=== PATIENT | female | born 1965 | race Caucasian/White ===

== ENCOUNTER → 2018-04-14 10:32 | Outpatient (CLI) | payer MEDICAID, SELFPAY ==
--- NOTE | 2018-04-14 10:38 | US_ITS ---
US transvaginal HISTORY: ITS.REASON: ABNORMAL UTERINE BLEEDING ORDERING PHYSICIAN: Leela Gillette PATIENT AGE: 52 years Comparison: None FINDINGS: The uterus is 8.4 x 3.2 x 4.4 cm with a combined endometrial thickness of 4 mm. Nabothian cyst is present. No uterine mass apparent. The right ovary is enlarged at 12 x 9 x 10 cm containing a septated cyst at 11 x 8 x 8 cm. The internal septations slightly thickened. No cul-de-sac fluid evident. The left ovary has been removed IMPRESSION: 11 x 8 cm complex right ovarian cyst containing a mildly thickened septation. Consider MRI for further evaluation.
== END ==
PROVIDERS: Family Provider Family Medicine; PCP Family Medicine; Visit Provider Nurse Practitioner Family
DX: N93.9 Abnormal uterine and vaginal bleeding, unspecified (principal)
CPT/HCPCS: 76830

== ENCOUNTER → 2018-05-05 10:41 | Outpatient (CLI) | payer MEDICAID, SELFPAY ==
--- NOTE | 2018-05-05 10:45 | MR_ITS ---
MR pelvis wo/w con HISTORY: ITS.REASON: COMPLEX CYST OF RIGHT OVARY ORDERING PHYSICIAN: Leela Gillette PATIENT AGE: 52 years Comparison: 04/14/2018 TECHNIQUE: Standard multiplanar multiecho sequences are performed without and with gadolinium enhancement. FINDINGS: There is a large cystic lesion of the pelvis measuring 12 cm cephalad to caudad, 11 cm transverse, and 9 cm AP this corresponds to the ultrasound abnormality described on 04/14/2018. This is situated slightly to the right of midline within the pelvis. There are a few thin septations involving this lesion. No obvious papillary projections. There is some mild thickening of the wall with enhancement along the left aspect of the lesion anteriorly and centrally as seen on the axial T1 fat suppressed post enhanced images. No obvious debris within the cyst. This does not appear to represent a hemorrhagic lesion nor does it appear to represent a lesion containing fat such as a dermoid or teratoma. No obvious ascites or pelvic adenopathy. The uterus is somewhat canted toward the right. There are small nabothian cysts noted. There is some fluid signal intensity within the lower uterine segment and cervical region. IMPRESSION: 1. 12 x 11 x 9 cm cystic pelvic mass as described above is likely ovarian in nature with a few thin internal septations. There is some mild wall thickening inferiorly. This may represent an ovarian cystadenoma/cystadenofibroma. Cystadenocarcinoma felt to be less likely but not completely excluded. Large complex follicular cyst also included in the differential diagnosis. No ascites or adenopathy. 2. Suggest gynecological consult.
== END ==
PROVIDERS: PCP Nurse Practitioner Family; Visit Provider Nurse Practitioner Family
DX: N83.291 Other ovarian cyst, right side (principal)
CPT/HCPCS: 72197; A9576

== ENCOUNTER → 2018-06-09 11:22 | Outpatient (CLI) | payer MEDICAID, SELFPAY ==
[2018-06-09 11:27] LABS: Microscopic, Urine URINE MICROSCOPIC (MICROSCOPIC)
[2018-06-09 11:45] LABS: Appearance,Urine CLEAR (Clear); Bilirubin,Urine Negative (Negative); Blood, Urine 2+ (Negative); Color,Urine YELLOW (Yellow); Glucose,Urine (UA) Negative (Negative); Ketones,Urine Negative (Negative); Leukocyte Esterase,Urine TRACE (Negative); Nitrate,Urine Negative (Negative); Protein,Urine Negative (Negative); Urobilinogen,Urine 0.2 EU/dl (0.2)
[2018-06-09 11:54] LABS: Bacteria,Urine 1+ /lpf; Mucus,Urine 3+ /lpf
[2018-06-09 12:25] LABS: Basophils # 0.1 K/mm3 (0-0.2); Basophils % 0.8 % (0.1-2.0); Eosinophils # 0.2 K/mm3 (0.0-0.4); Eosinophils % 2.5 % (0.1-12.0); Hematocrit 44.7 % (37.0-47.0); Hemoglobin 14.3 g/dL (12.2-16.2); Lymphocytes # 2.4 K/mm3 (0.7-4.5); Lymphocytes % 33.4 % (10-50); Mean Corpuscular Hemoglobin 29.8 pg (27.0-31.2); Mean Corpuscular Volume 93.2 fl (81-99); Mean Platelet Volume 7.6 fl (7.4-10.4); Monocytes # 0.3 K/mm3 (0.1-1.0); Monocytes % 4.5 % (1.7-9.3); Neutrophils # 4.3 K/mm3 (1.8-7.8); Neutrophils % 58.8 % (37.0-80.0); Platelet Count 387 K/mm3 (142-424); Red Cell Distribution Width 14.4 % (11.5-17.5); White Blood Count 7.2 K/mm3 (4.8-10.8)
[2018-06-09 13:52] LABS: Alanine Aminotransferase 17 U/L (12-78); Albumin Level 3.4 gm/dL (3.4-5.0); Albumin/Globulin Ratio 0.9 (1.1-1.8); Alkaline Phosphatase 75 U/L (46-116); Anion Gap 15.2 mEq/L (5-15); Aspartate Amino Transferase 16 U/L (15-37); Bilirubin,Total 0.3 mg/dL (0.2-1.0); Blood Urea Nitrogen 16 mg/dL (7-18); Calcium 8.5 mg/dL (8.5-10.1); Carbon Dioxide 27 mmol/L (21.0-32.0); Chloride 104 mmol/L (98-107); Creatinine,Serum 0.71 mg/dL (0.55-1.02); Estimated Glomerular Filt Rate 86 ml/min (>60); GFR (African American) 104 ML/MIN (>60); Globulin 3.8 gm/dl (1.3-3.2); Glucose 86 mg/dL (74-106); Potassium 4.2 mmoL/L (3.5-5.1); Sodium 142 mmol/L (136-145); Total Protein,Serum 7.2 gm/dL (6.4-8.2)
[2018-06-10 11:46] LABS: Cancer Antigen (CA) 125 14.5 U/mL (0.0-38.1)
== END ==
PROVIDERS: PCP Family Medicine; Visit Provider Obstetrics & Gynecology
DX: Z01.818 Encounter for other preprocedural examination (principal); R19.00 Intra-abdominal and pelvic swelling, mass and lump, unspecified site
CPT/HCPCS: 36415; 80053; 81001; 85025; 86316; 87086; 87088; 87186

== ENCOUNTER → 2018-06-23 10:09 | Outpatient (CLI) | payer MEDICAID, SELFPAY ==
[2018-06-23 10:25] LABS: Microscopic, Urine URINE MICROSCOPIC (MICROSCOPIC)
--- NOTE | 2018-06-23 10:30 | XR_ITS ---
XR chest 2V HISTORY: ITS.REASON: CONGESTION, CURRENT SMOKER, PRE-OP ORDERING PHYSICIAN: Roman Petty MD PATIENT AGE: 53 years COMPARISON: None FINDINGS: The cardiomediastinal silhouette and pulmonary vascularity are within normal limits. The lungs are clear without infiltrates, suspicious nodules, or pleural effusions. No acute bony abnormalities. IMPRESSION: Negative chest, no acute finding
[2018-06-23 10:47] LABS: Basophils # 0.1 K/mm3 (0-0.2); Basophils % 0.5 % (0.1-2.0); Eosinophils # 0.3 K/mm3 (0.0-0.4); Eosinophils % 2.2 % (0.1-12.0); Hematocrit 43.8 % (37.0-47.0); Hemoglobin 14.2 g/dL (12.2-16.2); Lymphocytes # 2.6 K/mm3 (0.7-4.5); Mean Corpuscular HGB Conc 32.4 g/dL (31.8-35.4); Mean Corpuscular Volume 92.5 fl (81-99); Mean Platelet Volume 7.7 fl (7.4-10.4); Monocytes # 0.7 K/mm3 (0.1-1.0); Monocytes % 4.9 % (1.7-9.3); Neutrophils # 10.9 K/mm3 (1.8-7.8); Neutrophils % 74.4 % (37.0-80.0); Platelet Count 442 K/mm3 (142-424); Red Blood Count 4.74 M/mm3 (4.20-5.40); Red Cell Distribution Width 14.1 % (11.5-17.5); White Blood Count 14.6 K/mm3 (4.8-10.8)
[2018-06-23 10:48] LABS: Appearance,Urine CLOUDY (Clear); Bilirubin,Urine Negative (Negative); Blood, Urine Negative (Negative); Color,Urine YELLOW (Yellow); Glucose,Urine (UA) Negative (Negative); Ketones,Urine TRACE (Negative); Leukocyte Esterase,Urine 2+ (Negative); Nitrate,Urine POSITIVE (Negative); Protein,Urine Negative (Negative); Specific Gravity, Urine >= 1.030 (1.005-1.030); Urobilinogen,Urine 0.2 EU/dl (0.2)
[2018-06-23 10:55] LABS: Bacteria,Urine 4+ /lpf; Squamous Epithelial Cell,Urine 20-50 #/hpf (0-5)
[2018-06-23 11:27] LABS: HCG Qualitative, Serum Negative (Negative)
[2018-06-23 11:32] LABS: Alanine Aminotransferase 17 U/L (12-78); Albumin Level 3.2 gm/dL (3.4-5.0); Albumin/Globulin Ratio 0.8 (1.1-1.8); Alkaline Phosphatase 85 U/L (46-116); Anion Gap 13.2 mEq/L (5-15); Aspartate Amino Transferase 9 U/L (15-37); Bilirubin,Total 0.6 mg/dL (0.2-1.0); Blood Urea Nitrogen 16 mg/dL (7-18); Calcium 8.6 mg/dL (8.5-10.1); Carbon Dioxide 27 mmol/L (21.0-32.0); Chloride 103 mmol/L (98-107); Creatinine,Serum 0.69 mg/dL (0.55-1.02); Estimated Glomerular Filt Rate 89 ml/min (>60); GFR (African American) 108 ML/MIN (>60); Globulin 3.9 gm/dl (1.3-3.2); Glucose 98 mg/dL (74-106); Potassium 4.2 mmoL/L (3.5-5.1); Sodium 139 mmol/L (136-145); Total Protein,Serum 7.1 gm/dL (6.4-8.2)
== END ==
PROVIDERS: Visit Provider Obstetrics & Gynecology
DX: Z01.818 Encounter for other preprocedural examination (principal); N94.9 Unspecified condition associated with female genital organs and menstrual cycle; N76.0 Acute vaginitis; B96.89 Other specified bacterial agents as the cause of diseases classified elsewhere
CPT/HCPCS: 36415; 71046; 80053; 81001; 84703; 85025; 87086; 87088; 87186; 93005

== ENCOUNTER 2018-06-26 06:08 | Inpatient (IN) ==
--- NOTE | 2018-06-26 07:03 | Progress Note ---
[facility] Anesthesia Checklist - Patient Identification Patient Identification: Arm Band, Verbal (Name & ) - Structural Data Admitted From: Home Planned Operative Procedure/s: ex lap Consent for Planned Operative Procedure(s) Verified: Yes Verified Documents: Surgical Consent, History and Physical - NPO Status Verified Time NPO: 00:00 - Chart Verification Results Verified: CBC, BMP - Additional verifications Patient : No Anesthesia Reactions: No Hx Blood Transfusions: No Blood Transfusion Reaction: No Cephalosporin Allergy: No Previous Colonoscopy: No - Cardiovascular Assessment Heart Sounds: S1 & S2 Pulse Strength: Baseline Pulse Rhythm: Regular Peripheral Edema: No - Airway Assessment C-Spine Mobility Assessed: Yes TMJ Mobility Assessed: Yes Dentition: Good Dentition - Neurological Assessment Level of Consciousness: Awake, Alert, Appropriate Hx Seizures: No Numbness or tingling in extremities: No - Anesthesia Plan Anesthesia Risk discussed: Yes Anesthesia Plan: Verified ASA Class: II Anesthesia Type: General [facility] History I have reviewed the patient's past medical history: Yes Medical History: Denies:: Cancer, Diabetes Mellitus Type 1, Diabetes Mellitus Type 2, Internal Pacemaker, MRSA, Seizures Other Medical History: Reports: Other. Denies: Blood Transfusion Reaction Other Surgeries: Yes: Other. No: Pacemaker Amputation: No Fractures: No - *Social History Educational Level: Attended High School Smoking Status: Current every day smoker # Packs/Day (cigarettes): 1 Alcohol Intake: never Substance Use Type: denies use Occupational Status: unemployed Housing: house Household Members: spouse - Psychiatric History Expresses thoughts of harming self/others: None Suicide Plan Description: No Plan *Family Hx:: Cancer
--- NOTE | 2018-06-26 09:59 | Operative Note ---
Date of procedure: 06/26/18 Pre-op Diagnosis:: #1 pelvic pain #2 right adnexal mass Post-op Diagnosis:: #1 pelvic pain. 2. left adnexal mass (benign serous cystadenoma by frozen section. Procedure performed:: 1. Exploratory laparotomy. 2. Peritoneal washings. 3. Left salpingo-oophorectomy with frozen section. 4. Total abdominal hysterectomy. Surgeon:: Roman Petty MD Bingo Attendant(s):: JEFFRY Cherry UTILITY MECHANIC SUPERVISOR:: Ernesto Valencia Anesthesia: GETA Estimated blood loss (mL): 300 Operative findings:: Large left adnexal mass (benign serous cystadenoma by frozen section) Operative note:: After the patient was prepped and draped in usual fashion and general anesthesia was admitted, a low abdominal midline incision was made through the previous incision, and the fat and fascia was in usual fashion, bleeders being clamped and coagulated along the way. The peritoneum was entered with a knife, and extended above and below with Metzenbaum scissors. Immediately, a large cyst (15 cm) cystic mass presented. There were no papillary excrescences on its surface. There was no ascites, but peritoneal washings were carried out and submitted for cytology. After the bowel was packed away and a self-retaining Ross retractor was placed, the mass was able to be identified as a large left adnexal cystic mass. A nubbin of the distal left tube was attached. The uterus was of normal size and configuration. The right adnexa was surgically absent. There was no other obvious pathology. The mass was carefully teased out of the abdomen, and the ovarian pedicle was crossclamped and cut, thus removing the left adnexa and submitting it for frozen section. This pedicle was Maegan suture with #1 Vicryl. The round ligaments on either side were Maegan clamped, cut, and Maegan sutured with #1 Vicryl. The bladder peritoneum was sharply and bluntly dissected free (it was well advanced on the anterior uterine surface). The uterine vessels, the cardinal and uterosacral ligaments on either side were Maegan clamped, cut, and Maegan sutured with #1 Vicryl. The cervix was long and was difficult to reach the base. Therefore, a supracervical hysterectomy was initially carried out, the body of the uterus being removed with a scalpel. Reedy clamps were used to tent up the remaining cervix, and then the cervical vessels were crossclamped and cut, and Maegan suture with #1 Vicryl. The vagina was then entered anteriorly with a knife, and the cervical specimen was removed with Masoud scissors. The vaginal cuff was closed with a running unlocked suture of #1 Vicryl. At this point the frozen section report was returned in benign serous cystadenoma of the left ovary. Because of some oozing, Gelfoam was placed against the back of the vaginal cuff. Was no other pathology noted. The upper abdomen was explored and found to be normal. The appendix was able to be palpated and was retrocecal, and remains in situ. The peritoneum was grasped with 3 Sandrita clamps, and closed with a running semi-locked suture of 0 Vicryl. The muscle was approximated with a running unlocked suture of 0 Vicryl. The fascia was closed with a running locked suture of #1 Vicryl. The subcutaneous fat and Jac's fascia were closed with a running unlocked suture of 2-0 Vicryl. The skin was closed with a subcuticular suture of 3-0 Vicryl, and appropriately dressed. The sponge and needle count was correct. The estimated blood loss was 300 cc. The urine was clear in the Youssef catheter. The patient tolerated the procedure well, was taken to PACU in excellent condition. She will be admitted postoperatively. Condition: stable Disposition: PACU Specimens:: 1. Peritoneal washings. 2. Left adnexa (frozen section) 3. Uterus. Complications:: None
--- NOTE | 2018-06-26 10:00 | Progress Note ---
[facility] Anesthesia Record Part I Intake, IV Amount: 1,250 Estimated blood loss (mL): 50 Urine output (mL): 125 Blood Products used (#): none Blood Pressure: 123/76 SaO2: 93 Pulse Rate: 80 Respiratory Rate: 18 Temperature: 97.4 F Patient is:: Nasal O2, Stable Stable to PACU at:: 09:58
--- NOTE | 2018-06-26 10:01 | Progress Note ---
[facility] Anesthesia Record Part II Discharge Time: 10:28 (+) Destination: Obstetric Gynecology Dept PACU nurse assessment reviewed?: Yes Patient Condition:: Good Anesthesia Complications:: None
[2018-06-26 11:27] LABS: Hematocrit 41.6 % (37.0-47.0); Hemoglobin 13.9 g/dL (12.2-16.2)
--- NOTE | 2018-06-26 15:15 | Progress Note ---
Internal Medicine - PN: Subj *Date: 06/26/18 *Time: 15:14 Interval history: This is day of surgery. The patient is afebrile. Vital signs stable. Wound clean. Abdomen soft. Urine output good/clear. Surgery has been explained to the patient. Impression: Stable. Exam Vital signs and Labs for Last 24 Hours: Temp Pulse Resp BP Pulse Ox 97.6 F 86 18 120/58 L 97 06/26/18 14:15 06/26/18 14:15 06/26/18 14:15 06/26/18 14:15 06/26/18 14:15 Laboratory Results - last 24 hr 06/26/18 07:50: Urine Color Yellow, Urine Appearance Clear, Urine pH 6.0, Ur Specific [place] 1.025, Urine Protein Negative, Urine Glucose (UA) Negative, Urine Ketones Negative, Urine Blood Negative, Urine Nitrate Negative, Urine Bilirubin Negative, Urine Urobilinogen 0.2, Ur Leukocyte Esterase Negative, Urine RBC None, Urine WBC None, Ur Squamous Epith Cells 5-10, Urine Bacteria 1+ 06/26/18 11:10: Hgb 13.9, Hct 41.6 I & O for Last 24 hours: Intake & Output 06/24/18 06/25/18 06/26/18 06/27/18 11:59 11:59 11:59 11:59 Intake Total 1250 / 1250 Balance 1250 / 1250 Weight 170 lb
--- NOTE | 2018-06-27 07:22 | Progress Note ---
Internal Medicine - PN: Subj *Date: 06/27/18 *Time: 07:19 Interval history: This is postop day #1. Surgery is again been explained to the patient. She is afebrile, and her vital signs are stable. However, she has developed a productive cough (and being sent for culture). As a result, a small area of the lower part of her incision has and has been approximated with Steri- Strips. Auscultation of her lungs is clear, but a chest x-ray has been ordered. She is using her incentive spirometer well. Her catheter has been removed; she is not yet voided. Her diet will be advanced to full liquids and she will ambulate today. I am going to restart her bipolar medications. Exam Vital signs and Labs for Last 24 Hours: Temp Pulse Resp BP Pulse Ox 98.7 F 72 18 100/48 L 94 L 06/27/18 04:45 06/27/18 04:45 06/27/18 04:45 06/27/18 04:45 06/27/18 04:45 Laboratory Results - last 24 hr 06/26/18 07:50: Urine Color Yellow, Urine Appearance Clear, Urine pH 6.0, Ur Specific [place] 1.025, Urine Protein Negative, Urine Glucose (UA) Negative, Urine Ketones Negative, Urine Blood Negative, Urine Nitrate Negative, Urine Bilirubin Negative, Urine Urobilinogen 0.2, Ur Leukocyte Esterase Negative, U rine RBC None, Urine WBC None, Ur Squamous Epith Cells 5-10, Urine Bacteria 1+ 06/26/18 11:10: Hgb 13.9, Hct 41.6 I & O for Last 24 hours: Intake & Output 06/24/18 06/25/18 06/26/18 06/27/18 11:59 11:59 11:59 11:59 Intake Total 1250 / 1250 2150 / 2150 Output Total 800 / 800 Balance 1250 / 1250 1350 / 1350 Weight 170 lb
[2018-06-27 07:29] LABS: Hematocrit 35.5 % (37.0-47.0)
[2018-06-27 07:30] LABS: Hemoglobin 11.3 g/dL (12.2-16.2)
--- NOTE | 2018-06-27 07:32 | Pharmacy Consult Notes ---
[facility] Pharmacy VTE Monitoring - Patient Demographics Admission date: 06/27/18 Report Date: 06/27/18 Time: 07:31 Allergies/Adverse Reactions: Patient Allergies No Known Allergies Allergy (Verified 06/25/18 08:53) Height: 1.55 m Weight: 77.111 kg - VTE Risk Labs: VTE Related Lab Results Hgb 11.3 g/dL (12.2-16.2) L D 06/27/18 07:14 Hct 35.5 % (37.0-47.0) L 06/27/18 07:14 Clinical Trial Participant: No - Prophylaxis VTE Prophylaxis Ordered?: Yes Types of VTE Prophylaxis: IPCS Thigh High (post op) Location of Applied Device: Bilateral Lower Extremeties
--- NOTE | 2018-06-28 06:50 | Progress Note ---
Internal Medicine - PN: Subj *Date: 06/28/18 *Time: 06:48 Interval history: This is postop day #2. The patient is afebrile. Vital signs stable. Wound clean. Abdomen soft. She is eating and ambulating and passing flatus. She still has mild cough, but her chest x-ray was normal (sputum culture is still pending. Impression: Stable/improving. Exam Vital signs and Labs for Last 24 Hours: Temp Pulse Resp BP Pulse Ox 98.8 F 79 18 91/44 L 94 L 06/28/18 04:30 06/28/18 04:30 06/28/18 04:30 06/28/18 04:30 06/28/18 04:30 Laboratory Results - last 24 hr 06/27/18 07:14: Hgb 11.3 L D, Hct 35.5 L I & O for Last 24 hours: Intake & Output 06/25/18 06/26/18 06/27/18 06/28/18 11:59 11:59 11:59 11:59 Intake Total 1250 / 1250 2150 / 2150 1485 / 1485 Output Total 950 / 950 1050 / 1050 Balance 1250 / 1250 1200 / 1200 435 / 435 Weight 170 lb 170 lb Microbiology Reports for the Last 24 Hours: Microbiology 06/27/18 07:20 Sputum - Expectorated Sputum Gram Stain - Final
--- NOTE | 2018-06-29 08:25 | Progress Note ---
Internal Medicine - PN: Subj *Date: 06/29/18 *Time: 08:24 Interval history: This is postop day #3. The patient is afebrile (temp 99.6 at one point last night). Vital signs stable. Wound clean. Abdomen soft. No vaginal bleeding. She has received nebulizer treatments, and her lungs are clear. Her sputum culture showed mixed organisms, but she has been treated with antibiotics. Her lungs are clear at this point in time. She is eating and ambulating and passing flatus. She will be discharged today. Exam Vital signs and Labs for Last 24 Hours: Temp Pulse Resp BP Pulse Ox 98.8 F 87 18 122/69 97 06/29/18 04:30 06/29/18 06:37 06/29/18 04:30 06/29/18 04:30 06/29/18 08:00 I & O for Last 24 hours: Intake & Output 06/26/18 06/27/18 06/28/18 06/29/18 11:59 11:59 11:59 11:59 Intake Total 1250 / 1250 2150 / 2150 1485 / 1485 Output Total 950 / 950 1050 / 1050 Balance 1250 / 1250 1200 / 1200 435 / 435 Weight 170 lb Microbiology Reports for the Last 24 Hours: Microbiology 06/27/18 07:20 Sputum - Expectorated Sputum Gram Stain - Final 06/27/18 07:20 Sputum - Expectorated Sputum Sputum Culture - Preliminary
--- NOTE | 2018-06-29 08:30 | Discharge Summary ---
General - General Admission date:: 06/26/18 Discharge date: 06/29/18 (This 53-year-old white female was admitted for definitive treatment of a large pelvic mass. She had previously undergone what was thought to be a left salpingo-oophorectomy, and CT/ultrasound scans revealed a large midline mass, presumably stemming from the right adnexa. On the date of admission, she was taken to the operating room for a toy laparotomy with peritoneal washings. The large cystic mass was in fact stemming from the left adnexa, and the right adnexa was surgically absent. The mass was excised (left tube and ovary), and frozen section revealed it to be a benign serous cystadenoma. Total abdominal hysterectomy was also carried out, without complications. The patient received Delestrogen 30mg q. on the date of surgery. Postoperatively, she has done reasonably well. She did experience some wheezi ng and crackling at her lung bases. Her chest x-ray was normal; sputum culture revealed mixed organisms, and she was treated with intravenous antibiotics. On a couple of occasions, she ran a low-grade temperature (99.6) and received nebulizer treatments. She also has a nicotine skin patch in situ (she is a smoker), and this morning her lungs are clear and she is afebrile. She has otherwise done well. She is eating and ambulating and passing flatus. Her wound is clean. Her abdomen soft. She is discharged home on the third postoperative day on Percocet 5/325 (#20), 1 p.o. q. 6 age as needed pain, and on nicotine skin patches 21 mg/day. She is given appropriate instructions as to diet, exercise, and wound care, and she is to return the office in 2 weeks for follow-up.) Objective Vital signs: Temp Pulse Resp BP Pulse Ox 98.8 F 91 H 20 116/51 L 97 06/29/18 08:23 06/29/18 08:23 06/29/18 08:23 06/29/18 08:23 06/29/18 08:23 Results Labs on day of discharge: Preliminary micro results at discharge 06/27/18 07:20 Sputum Culture - Preliminary Sputum - Expectorated Sputum Discharge Plan - Patient Discharge Instructions - Follow up Plan Home Medications: Home Medications Medication Instructions Recorded Confirmed Type aspirin 81 mg tablet,delayed 81 mg PO DAILY 06/09/18 06/26/18 History release citalopram 40 mg tablet 40 mg PO DAILY 06/09/18 06/26/18 History Trazodone HCl 100 mg PO HS 06/12/18 06/27/18 History Prescriptions/Medication Reconciliation: No Action citalopram 40 mg tablet 40 mg PO DAILY aspirin 81 mg tablet,delayed release 81 mg PO DAILY Trazodone HCl 100 mg PO HS
== END 2018-06-29 09:30 | disposition home or self-care (01) ==
LOC: OR 06:08 → 2ND 06:21 → OB 11:29
PROVIDERS: ADMIT Obstetrics & Gynecology; ATTEND Obstetrics & Gynecology

== ENCOUNTER → 2020-03-28 12:40 | Outpatient (CLI) | payer OTHER, SELFPAY | PROVIDERS: PCP Nurse Practitioner Family; Visit Provider Nurse Practitioner Family | DX: G47.33 Obstructive sleep apnea (adult) (pediatric) (principal); G47.30 Sleep apnea, unspecified; G47.10 Hypersomnia, unspecified; R06.83 Snoring | CPT/HCPCS: 95806 ==